=== PATIENT | female | born 1995 | race Caucasian/White ===

== ENCOUNTER 2018-01-15 11:40 | Emergency (ER) | payer OTHER ==
[~2018-01-15] VITALS: Ht 167.6 cm; Wt 68.0 kg
== END 2018-01-15 14:37 | disposition home or self-care (01) ==
LOC: ER 11:40
DX: S13.4XXA Sprain of ligaments of cervical spine, initial encounter (principal); V49.9XXA Car occupant (driver) (passenger) injured in unspecified traffic accident, initial encounter; Y93.89 Activity, other specified; Y92.488 Other paved roadways as the place of occurrence of the external cause; Y99.8 Other external cause status